=== PATIENT | female | born 1965 ===

== ENCOUNTER 2020-07-20 16:23 | Emergency (ER) | payer SELFPAY ==
[~2020-07-20] VITALS: Ht 165.1 cm; Wt 86.4 kg
[2020-07-20 16:26] VITALS: Ht 165.1 cm; Wt 86.4 kg
[2020-07-20] MEDS ORDERED: EFFEXOR XR150 MG PO (16:26)
[2020-07-20 17:43] VITALS: BP 157/138
== END 2020-07-20 17:43 | disposition home or self-care (01) ==
LOC: D.ER 16:23
DX: S16.1XXA Strain of muscle, fascia and tendon at neck level, initial encounter (principal); V89.2XXA Person injured in unspecified motor-vehicle accident, traffic, initial encounter; Y93.9 Activity, unspecified; Y92.9 Unspecified place or not applicable